=== PATIENT | female | born 1990 | race Caucasian/White ===

== ENCOUNTER 2022-09-11 12:59 | Outpatient (CLI) | payer BC, SELFPAY ==
--- NOTE | 2022-09-11 13:00 | MR_ITS ---
[address] [address] Phone:?[phone] Fax:?[phone] Referring Physician Information: Kofi Yeung [address] [facility] [address] Phone:?[phone] Fax:?[phone] Patient:?Yuly Farooq D.O.B:?1990 Sex:?Female Phone:?[phone] [facility] MRN:?[id number] Exam Date:?09/11/2022 ? EXAM: MRI EXAMINATION OF THE LEFT KNEE CLINICAL INFORMATION: Left knee pain. Status post hyperextension injury. Swelling. Symptoms ongoing for several months. No history of surgery to this area. TECHNICAL INFORMATION: Coronal PD and STIR. Axial PD and T2 fat saturation. Sagittal PD and PD fat saturation images were acquired. INTERPRETATION: Bones: Degenerative or ganglion cystic changes are identified along the posterior lateral aspect of the medial tibial plateau. No evidence for an occult fracture, osseous contusion or stress reaction. No other abnormal bone marrow edema pattern is identified. Ligaments and tendons: The medial collateral ligament is intact, without acute sprain or tear. The iliotibial band, fibular collateral ligament, biceps femoris tendon and popliteus tendon all are intact. The anterior cruciate ligament is intact without acute sprain or tear. The posterior cruciate ligament is intact. Extensor Mechanism: The patellar and quadriceps tendons are intact. The medial and lateral retinacula are intact. Knee Joint: There is a large knee joint effusion. No discrete popliteal cyst. There is no discrete loose body seen within the joint. Medial Compartment: Residua of a meniscocapsular injury involves the posterior horn medial meniscus. There is no evidence for a medial meniscal tear. No displaced flap fragment or parameniscal cyst. There is no focal chondral defect. No other significant changes of chondromalacia. Lateral Compartment: There is no evidence for discrete lateral meniscal tear. No displaced flap fragment or parameniscal cyst. There is an abnormal appearance as seen on series 6 image 22 as well as series 8 images 20 through 23 of a 1.6 cm AP by 0.9 cm mediolateral full-thickness chondral defect involving the posterior weightbearing surface of the lateral femoral condyle. There is a 7 mm segment of grade I to II chondromalacia involving the medial surface of the lateral tibial plateau. Patellofemoral articulation: There are patchy areas of grade II chondromalacia identified across the central portion of the patella. There is a 0.8 x 0.6 cm segment of grade III chondromalacia towards the superior surface of the lateral trochlear groove. There is a 1 x 0.9 cm segment of grade III chondromalacia involving the midline trochlear groove. CONCLUSION: 1. There is a 1.6 x 0.9 cm focal full-thickness chondral defect involving the posterior weightbearing surface of the lateral femoral condyle. 2. There is a large knee joint effusion. No convincing evidence for a loose body within the joint. 3. Residua of a meniscocapsular injury involving the posterior horn medial meniscus. There is no evidence for a meniscal tear. 4. Patellofemoral chondromalacia. This includes a small to moderate size segment of grade III involvement of the midline trochlear groove. Additional small segment of grade III chondromalacia towards the superior surface of the lateral trochlear groove. 5. The cruciate ligaments are intact. No other residua of a ligament injury involving the knee. KES Electronically signed on 09/11/2022 3:11:00 PM by Alfonso Gentile M.D.
== END 2022-09-11 13:00 | disposition home or self-care (01) ==
LOC: MRI 13:06
PROVIDERS: PCP Surgery; Visit Provider Physician Assistant Surgical
DX: M25.562 Pain in left knee (principal); M25.462 Effusion, left knee; M22.42 Chondromalacia patellae, left knee
CPT/HCPCS: 73721

== ENCOUNTER 2022-11-22 08:19 | Outpatient (CLI) | payer BC, SELFPAY ==
--- NOTE | 2022-11-22 08:15 | CRLHL7_ITS ---
For Patients: As a result of the Cures Act, medical imaging exams and procedure reports are released immediately into your electronic medical record. You may view this report before your referring provider. If you have questions, please contact your health care provider. INDICATION: Dating and viability. LMP 09/27/2022. COMPARISON: None. TECHNIQUE: Real-time ribera-scale imaging of the pelvis was performed. FINDINGS: Sonographic imaging demonstrates a single living intrauterine gestation. The embryo has a regular cardiac rate measuring 159 beats per minute. The embryo`s crown-rump length measurement of 7.8 cm corresponds to a gestational age of 13 weeks 6 days with a sonographic due date of 05/24/2023. The placenta is developing posteriorly. No evidence of a perigestational hemorrhage. The ovaries were not visualized. No free fluid in the cul-de-sac. IMPRESSION: 1. Single living intrauterine gestation with crown rump length 7.8 cm which corresponds to a gestational age of 13 weeks 6 days with a sonographic due date of 05/24/2023. 2. The clinical gestational age by LMP is 8 weeks 0 days. Dictated by Jaci Rios MD @ 11/23/2022 1:48:25 AM (Electronically Signed)
== END 2022-11-22 08:20 | disposition home or self-care (01) ==
LOC: US 08:20
PROVIDERS: PCP Surgery; Visit Provider Registered Nurse
DX: Z34.91 Encounter for supervision of normal pregnancy, unspecified, first trimester (principal); Z3A.13 13 weeks gestation of pregnancy
CPT/HCPCS: 0353U; 76801; 76817; 86703; 86803; 86850; 86900; 86901; 87086; 87340; 87491; 87591

== ENCOUNTER 2022-11-22 09:19 | Outpatient (CLI) | payer BC, SELFPAY ==
[2022-11-22 13:13] LABS: Chlamydia DNA Amplified* NOT DETECTED (No Detected); GC DNA Amplified* NOT DETECTED (No Detected)
== END 2022-11-22 09:20 | disposition home or self-care (01) ==
PROVIDERS: PCP Surgery; Visit Provider Registered Nurse
DX: Z34.91 Encounter for supervision of normal pregnancy, unspecified, first trimester (principal); Z3A.13 13 weeks gestation of pregnancy
CPT/HCPCS: 0353U; 86592; 86703; 86762; 86787; 86803; 86850; 86900; 86901; 87086; 87340

== ENCOUNTER 2023-02-28 10:38 | Outpatient (CLI) | payer BC, SELFPAY | END 2023-02-28 10:39 | disposition home or self-care (01) | LOC: NFLDREF 03-02 10:24 | PROVIDERS: PCP Surgery; Referring Provider Surgery; Visit Provider Obstetrics & Gynecology | DX: Z34.92 Encounter for supervision of normal pregnancy, unspecified, second trimester (principal); Z3A.27 27 weeks gestation of pregnancy | CPT/HCPCS: 86592 ==

== ENCOUNTER 2023-03-29 08:46 | Outpatient (CLI) | payer BC, SELFPAY ==
--- NOTE | 2023-03-29 08:45 | CRLHL7_ITS ---
For Patients: As a result of the Cures Act, medical imaging exams and procedure reports are released immediately into your electronic medical record. You may view this report before your referring provider. If you have questions, please contact your health care provider. INDICATION: Third trimester scan, evaluate growth. COMPARISON: 01/10/2023 TECHNIQUE: Real time ribera scale imaging of the fetus was performed. FINDINGS: Sonographic imaging demonstrates a single living intrauterine gestation. Fetus demonstrates a regular cardiac rate of 157 beats per minute. Fetus has a vertex position. The placenta lies posteriorly. Amniotic fluid volume appears normal and there is a single deepest vertical pocket: 5.5 cm. The estimated weight is 1755gm which lies at the 21st %. On the prior OB ultrasound exam dated 01/10/2023 the estimated weight was at the 15th%. BPD 7th percentile. HC 9th percentile. AC 42nd percentile. FL 13th percentile. The HC/AC ratio measures 1.04 range (0.96-1.17). IMPRESSION: Sonographic gestational age 31 weeks 1 day and sonographic due date 05/30/2023. Sonographic age is 6 days behind the clinical age. Estimated weight 21st percentile. Abdominal circumference 42nd percentile. Dictated by Manolo Guardado MD @ 03/29/2023 10:29:31 AM (Electronically Signed)
== END 2023-03-29 08:47 | disposition home or self-care (01) ==
LOC: US 08:47
PROVIDERS: PCP Surgery; Visit Provider Obstetrics & Gynecology
DX: Z34.93 Encounter for supervision of normal pregnancy, unspecified, third trimester (principal); Z3A.31 31 weeks gestation of pregnancy
CPT/HCPCS: 76816

== ENCOUNTER 2023-04-26 09:15 | Outpatient (CLI) | payer BC, SELFPAY | END 2023-04-26 09:16 | disposition home or self-care (01) | LOC: NFLDREF 05-04 09:08 | PROVIDERS: PCP Surgery; Referring Provider Surgery; Visit Provider Obstetrics & Gynecology | DX: Z34.93 Encounter for supervision of normal pregnancy, unspecified, third trimester (principal); Z3A.36 36 weeks gestation of pregnancy | CPT/HCPCS: 87081; 87653 ==

== ENCOUNTER 2023-05-04 10:01 | Inpatient (IN) | payer BC, SELFPAY ==
[2023-05-04] VITALS (27 sets, daily range): BP systolic 95–116; BP diastolic 56–73; PULSE 70–97; RESP 16–18; TEMP 36.3–36.6; O2SAT 94–100; BMI 41.9
[2023-05-04 10:38] LABS: Basophils Absolute Auto 0.02 K/uL (0.00-0.30); Basophils Percent Auto 0.2 % (0.0-3.0); Eosinophils Absolute Auto 0.02 K/uL (0.00-0.50); Eosinophils Percent Auto 0.2 % (0.0-7.0); Hematocrit 35.2 % (33.0-51.0); Hemoglobin* 11.9 gm/dL (12.0-16.0); Immature Granulocytes Abs Auto 0.04 K/uL (0.00-0.30); Immature Granulocytes Pct Auto 0.5 %; Lymphocytes Percent Auto 17.9 % (20-44); Mean Corpuscular HGB Conc 34 gm/dL (32-36); Mean Corpuscular Hemoglobin 30 pg (26-34); Mean Corpuscular Volume 90 fL (80-100); Monocytes Percent Auto 6.4 % (0.0-11.0); Neutrophils Percent Auto 74.8 % (42.0-72.0); Platelet Count* 193 K/uL (140-440); Red Blood Count 3.91 m/uL (4.00-5.20); White Blood Count* 8.58 K/uL (4.50-11.00)
[2023-05-04] MEDS: LACTATED RINGERS 1000 ML 1,000 ML 1200 ML IV (10:40)
[2023-05-04 10:44] LABS: Slide Review Reflex No
[2023-05-04] MEDS: CEFAZOLIN 2 GM in 0.9 % SODIUM CHLORIDE Mini-bag 100 ML IVPB (12:18)
[2023-05-04] MEDS: LACTATED RINGERS 1000 ML 1,000 ML 125 ML IV (12:45)
--- NOTE | 2023-05-04 13:40 | P.LDBA_ITS ---
Subjective History of Present Illness Time Seen by Provider: 11:00 Date Seen: 05/04/23 Narrative: Patient is being admitted to Labor and Delivery for scheduled repeat delivery.. She is a 33 year old at weeks gestation. Her full history and physical was dictated by Dr. Mota on 04/26/2023. Please see this for details. Patient is feeling well today. No regular/painful uterine contractions vaginal bleeding or leaking of fluid. Active movement. Specific Issues/Plans G 6 : Nadeem 1. History of 3 deliveries. Recommendation made by Dr. Kamara at the time of her last delivery that she deliver at early term due to extremely thin lower uterine segment 2. BMI 39.1 Hemoglobin A1c: 5.1 Dietitian referral placed 3. Closely spaced pregnancies. Last delivery 12/12/2021. 4. History of depression and anxiety. * States she is managing well with sertraline 25 mg daily. * Sees a therapist on a weekly basis. * Increased sertraline to 50 mg daily 03/29/23 repeat PHQ and yuri 7 next visit 5. Desires surgical sterilization at the time of repeat section * Federal consent form signed 01/10/2023. 6. EFW 15% at 20 weeks. Repeat US for EFW at 32 weeks: EFW 21% Covid: not vaccinated. Recommended. Reviewed risks associated with covid infection in . TDAP 03/20/23 OB - Problem Based A/P Additional Plan (1) History of 3 sections: Status: Acute (2) Short interval between pregnancies affecting , antepartum: Status: Acute (3) Obesity affecting : Status: Acute (4) Anxiety: Status: Acute (5) : Status: Acute Plan - Consented for repeat delivery with bilateral salpingectomy with Dr. Mota and myself - Plan perioperative Ancef, previously tolerated in her last - Blood type O positive, GBS positive OB Result Labs Labs: Hemoglobin today 11.9 OB Exam Physical Exam Vital signs: Temp Pulse Resp BP Pulse Ox 98 F 77 16 116/70 97 05/04/23 10:49 05/04/23 10:49 05/04/23 10:49 05/04/23 10:49 05/04/23 10:48 Narrative: General: Alert oriented in no acute distress Lungs: Clear to posterior auscultation without wheezes rales or crackles. Heart: Regular rate and rhythm. Abdomen: Gravid. Reactive NST.
--- NOTE | 2023-05-04 13:41 | W.PM.NB ---
Nerve Block Nerve Block Time Seen by Provider: 12:37 Date Seen: 05/04/23 Type of block requested by surgeon for post-operative analgesia: TAP Side: bilateral Time out performed: Yes Verification of patient name: Yes Verification of date of : Yes Site marking: site marked Name of person performing procedure: James Continuous monitoring Was continuous monitoring of O2 sat, B/P, machine tack puller, recorded every 15 minutes?: Yes Procedure Checklist: sterile prep, needles and gloves Ultrasound guided. Images saved: Yes Medications given in 5ml increments after negative aspiration: Marcaine %: 0.25 mL: 30 Needle gauge: 20 and Exparel mL: 10 Patient tolerated procedure well: Yes Additional comments: Needle noted adjacent to nerve Block Charges Block Charge (with Pro Fee): TAP Bilateral Use of Ultrasound Machine for Block: Yes- US Guidance/pain block
--- NOTE | 2023-05-04 13:41 | W.ANESCHARGE ---
Anesthesia Charges Start Date/Time Anesthesia Start Date: 05/04/23 Anesthesia Start Time: 12:15 Stop Date/Time Anesthesia Stop Date: 05/04/23 Anesthesia Stop Time: 13:48
--- NOTE | 2023-05-04 13:44 | P.OBPRC_ITS ---
Procedure Time Seen by Provider: 13:44 Date of procedure: 05/04/23 Pre-op diagnosis: Thirty-seven weeks gestation, prior delivery x3 Procedure Done: Global Will [facility] bill your pro fee for this procedure?: Yes Blood Loss Measurement Type: QBL (1214mL) Bakri Used: No IV fluids (mL): 1,700 Power Plant Inspector: Mariela Mota MD Anesthesia type: Spinal Findings: Mild adhesive disease secondary to prior deliveries Normal uterus, bilateral fallopian tubes and ovaries 1 cm left paratubal cyst Procedure Name: Repeat delivery with bilateral salpingectomy Procedure Description: PROCEDURE IN DETAIL: Patient was taken to the operating room with IV running. She received cefazolin in preoperative prophylaxis. Epidural anesthesia had previously been administered. Jay catheter was inserted. She was prepped and draped in the usual sterile fashion. Anesthesia was tested and found to be adequate. A low-transverse skin incision was made along her Pfannenstiel scar with a scal pel and carried through to the underlying layer of fascia with the scalpel. The subcutaneous fat was dissected off the underlying fascia with gentle blunt dissection. The fascia was nicked in the midline with a scalpel, and this incision was extended laterally with scissors. The rectus muscles were in the midline. Peritoneum was identified and entered bluntly. Mild adhesions were noted between the anterior abdominal wall and omentum, carefully reduced. Deng O retractor was inserted and tightened down, providing excellent visualization of the lower uterine segment. The bladder reflection was noted, and bladder flap performed with Metzenbaum scissors and gentle blunt dissection to below the level of the planned hysterotomy. Low-transverse uterine incision was made with a scalpel. Incision was widened bluntly. The infant's head was grasped through the hysterotomy and delivered with the help of fundal pressure. The remainder of the body delivered without incident. Cord was clamped and cut after 30 seconds. was handed off to attending nurses. The placenta was delivered with gentle traction on the cord. The uterus was cleaned of all clots and debris with the dry lap pad. The hysterotomy was reapproximated with 0 Vicryl in a running, locked fashion. Second layer of the same suture was used in imbricating fashion to obtain hemostasis. The adnexa were examined and noted to be normal in appearance. The left fallopian tube was elevated with two Babcocks and starting at the fibriated end the mesosalpinx was sequentially ligated and transected with hand-held Ligasure. A left paratubal cyst was noted just distal to the fibriated end of the tube, elevated with Russians and ligated/transected with Ligasure. Excellent hemoastsis noted. Salpingectomy was completed on the right as described above. Specimens sent for pathology. The cul-de-sac and gutters were cleansed with dampened laparotomy sponge, removing any further clots and debris. The Deng O retractor was removed. The hysterotomy was reexamined and found to be hemostatic. The rectus muscles were examined and found to be hemostatic. The fascia was reapproximated with 0 PDS in a running fashion. Subcutaneous fat was irrigated and Bovie used on oozing vessels. The subcutaneous fat was reapproximated with 2-0 vicryl suture in an interrupted fashion. The skin was closed with a subcuticular stitch of 3-0 Vicryl. Surgical glue was applied above this. Patient tolerated procedure well was taken to recovery area in stable condition. Complications: None. Condition: stable
--- NOTE | 2023-05-04 13:54 | W.ANESCHARGE ---
Anesthesia Charges Start Date/Time Anesthesia Start Date: 05/04/23 Anesthesia Start Time: 12:15 Stop Date/Time Anesthesia Stop Date: 05/04/23 Anesthesia Stop Time: 13:48
--- NOTE | 2023-05-04 14:05 | SUR.PHASEI ---
patient meets pacu discharge criteria per therapeutic riding instructor
[2023-05-04] MEDS: ACETAMINOPHEN 500 MG TABLET 1000 MG PO ×2 (18:17→23:49)
[2023-05-04] MEDS: KETOROLAC 30 MG/ML inj IVP (19:49)
[2023-05-04] MEDS: diphenhydrAMINE 50 MG/ML inj 12.5 MG IVP ×2 (20:24→21:18)
[2023-05-04] MEDS: SERTRALINE 50 MG TABLET PO (21:11)
[2023-05-04] MEDS: ENOXAPARIN 40 MG/0.4 ML INJ SUBCUT (23:36)
[2023-05-05] VITALS (12 sets, daily range): BP systolic 97–116; BP diastolic 58–72; PULSE 68–81; RESP 16–18; TEMP 36.4–36.7; O2SAT 96–98
[2023-05-05] MEDS: KETOROLAC 30 MG/ML inj IVP ×4 (01:45→20:00)
[2023-05-05] MEDS: OXYCODONE 5 MG TABLET PO (05:17)
[2023-05-05] MEDS: ACETAMINOPHEN 500 MG TABLET 1000 MG PO ×3 (05:17→18:59)
[2023-05-05] MEDS: SIMETHICONE 80 MG TAB.CHEW PO ×2 (05:49→20:00)
[2023-05-05] MEDS: DOCUSATE SODIUM 100 MG CAPSULE PO (07:42)
[2023-05-05 07:51] LABS: Hemoglobin* 10.2 gm/dL (12.0-16.0)
--- NOTE | 2023-05-05 13:42 | PM.OBPNVD1 ---
OB - PN:Subj Subjective Date Seen: 05/05/23 Patient comments OB post-: no complaints, pain well controlled, tolerating diet and flatus present [place] status: and doing well [place] feeding status: exclusively Narrative: Day 1:? Vaginal Delivery at 37 and 1/7 weeks post repeat section at 37 weeks due to a history of a thin lower uterine segment.? ?? Complications:? none? The patient feels well.? The pain is well controlled with current medications.? She has no new complaints.? Urinary output is adequate and she is voiding without difficulty.? Has a good appetite, is tolerating a general diet, is passing flatus, and has had a bowel movement.? Has scant amount of rubra lochia.? She is ambulating well.?She is and feels that it is going well and denies concerns. She is uncertain if she would like to discharge tomorrow or Sunday. ? OB - PN: Obj Exam Physical Exam: Vital signs: Temp Pulse Resp BP Pulse Ox O2 Del Method 97.7 F 68 16 97/58 L 96 Room Air 05/05/23 10:10 05/05/23 10:10 05/05/23 11:55 05/05/23 10:10 05/05/23 10:10 05/05/23 10:10 Narrative: GENERAL APPEARANCE:? normal affect, alert, no distress? MOOD:? appropriate? CHEST:? clear to auscultation and percussion? HEART:? regular rate and rhythm? ABDOMEN:? soft, non-tender the uterine fundus is U/2 and is appropriate for the stage of recovery.?Insicion covered by a dressing that is clean dry and intact. EXTREMITIES:? normal and no edema? Urinary Catheter Management: Urethral: Cath placed during this visit: yes, but has since been removed by the nurse Reason for continuing: decision to DC catheter Insertion date: 05/04/23 Insertion time: 12:30 Removal date: 05/04/23 Removal time: 19:00 OB - PN: Obj Data Labs Labs: Laboratory Results - last 24 hr 05/04/23 05/05/23 10:30 07:40 Hgb 10.2 L Blood Type O Positive OB - PN: A/P Delivery Assessment and Plan (1) History of 3 sections: Status: Acute (2) Short interval between pregnancies affecting , antepartum: Status: Acute (3) Obesity affecting : Status: Acute (4) Anxiety: Status: Acute (5) : Status: Acute (6) Lactating mother: Status: Acute (7) care following delivery: Status: Acute Plan day: 1 Plan: routine care Comments: 32 year old on day 1.? 1. cares.? 2. Anticipate discharge tomorrow or Sunday per patient preference.?
[2023-05-05] MEDS: SERTRALINE 50 MG TABLET PO (20:01)
[2023-05-05] MEDS: ENOXAPARIN 40 MG/0.4 ML INJ SUBCUT (23:29)
[2023-05-06 03:32] VITALS: BP 105/69; PULSE 70; RESP 16; TEMP 36.4; O2SAT 99
[2023-05-06] MEDS: IBUPROFEN 600 MG TABLET PO (03:35)
--- NOTE | 2023-05-06 08:46 | P.DS_ITS ---
DS: Providers Provider Date Seen: 05/06/23 Date of admission: 05/04/23 10:01 Primary care physician: Cesar Ramon MD Admitting Clinician: Mariela Mota MD Attending Physician on discharge: Marcia Walker APRN, CNM DS: Diagnosis Discharge Diagnosis (1) care and examination immediately after delivery: Status: Acute (2) care following delivery: Status: Acute (3) Delivery by section of full-term infant: Status: Acute (4) Anxiety: Status: Acute Exam Narrative: Exam Narrative: GENERAL APPEARANCE:? normal affect, alert, no distress MOOD:? appropriate CHEST:? clear to auscultation HEART:? regular rate and rhythm ABDOMEN:? soft, non-tender the uterine fundus is at Umbilicus, Midline and is appropriate for the stage of recovery. EXTREMITIES:? normal and no edema INCISION: Healing well, no surrounding erythema, abnormal induration or discharge Const: Vital Signs, click to edit/add: Vital Signs - 24 hr 05/05/23 08:55 05/05/23 09:55 05/05/23 10:10 Temperature 97.7 F Pulse Rate [Pulse Oximeter] 68 Respiratory Rate 16 16 16 Blood Pressure [Le ft Arm] 97/58 L Pulse Oximetry 96 Oxygen Delivery Me thod Room Air 05/05/23 10:55 05/05/23 11:55 05/05/23 19:58 Temperature 98.1 F Pulse Rate [Pulse Oximeter] 81 Respiratory Rate 16 16 18 Blood Pressure [Le ft Arm] 110/70 Pulse Oximetry 98 Oxygen Delivery Me thod Room Air 05/06/23 03:32 Temperature 97.5 F L Pulse Rate [Pulse Oximeter] 70 Respiratory Rate 16 Blood Pressure [Le ft Arm] 105/69 Pulse Oximetry 99 Oxygen Delivery Me thod Room Air OB - DS: Summary Hospital Course Hospital Course: Yuly is a 33 year old G 6 P 3124 at 37 1/7 weeks gestation that was admitted to the Center on 05/04/23 for repeat section with bilateral salpingectomy. She had an uncomplicated delivery. She delivered a viable female . The patient feels well. ?The pain is well controlled with current medications. ?She has no new complaints. ?She is breast feeding and reports things are going well. the patient has done well.? Vitals have been stable.? She has remained afebrile.? Has a good appetite, is tolerating a general diet. ?She is voiding without difficulty.? She is passing gas and has had a bowel movement.? She is ambulating and denies any dizziness.? Has small amount of rubra lochia. She had a bilateral salpingectomy for sterilization. Problems: None plan: Discharge home with baby. Follow up in 2 weeks and 6 weeks. , may see if needed Hgb 10.2. Peripartum Data delivery method: Repeat Section Laceration description: None Procedures: Procedures Operation Date: 05/04/23 12:15 Actual Procedure Side Surgeon p Repeat with bilateral salpingectomy Bilateral Mariela B MD [place] complications: none [place] Gender: Female Infant Discharge Plan: Home Time Spent with Patient Time attestation: Total time spent providing and/or coordinating discharge services: Time spent: Less than 30 minutes Discharge Plan Discharge Disposition: Home, Self-Care Date of Admission: 05/04/23 10:01 Attending Provider on Discharge: Marcia Walker Primary Care Provider: Cesar Ramon Condition: Stable Anticipated Discharge Date/Time: 05/06/23 12:00 Discharge Medications: New acetaminophen 500 mg Tablet 1,000 mg PO Q6H PRN (Reason: Pain) Qty: 0 0RF docusate sodium 100 mg Capsule 100 mg PO DAILY Qty: 90 0RF ibuprofen 600 mg Tablet 600 mg PO Q6H PRN (Reason: Pain) Qty: 60 0RF oxycodone 5 mg Tablet 5 - 10 mg PO Q4H PRN (Reason: Pain) Qty: 20 0RF Continued prenat.vits,levi,scz-tpny-agoko Tablet 1 tab PO QDAY sertraline 50 mg tablet 50 mg PO QDAY Qty: 90 0RF Discharge Orders: Discharge Order (Routine); Ordered 05/06/23 Ordered By: Marcia Walker Patient Education: OB Over the Counter Medication Information, OB /Breast Feeding Additional Instructions: Discharge instructions were reviewed with the patient including signs and symptoms of infection and home going medications Lifting Restrictions: 20 pounds for 6 weeks No not submerge incision under water X 2 weeks? Nothing vaginally for 6 weeks: no tampons or intercourse Do not drive while taking narcotic pain medication(s) Off Work or School for 8 weeks 2-week visit: incision check, discuss infant feeding concerns, review control options and screen for anxiety/depression. 6-week visit for an annual exam. consultation services are available to all mothers and babies for the first year after delivery.? To make an appointment, please call [phone]. Activity Level: Activity as Tolerated Discharge Diet: Regular Follow Up Appointments: [facility] [Provider Group] Forms: [employer] Info Instructions
[2023-05-06] MEDS: ACETAMINOPHEN 500 MG TABLET 1000 MG PO (08:49)
[2023-05-06] MEDS: DOCUSATE SODIUM 100 MG CAPSULE PO (08:49)
[2023-05-06 09:22] VITALS: BP 127/76; PULSE 78; RESP 16; TEMP 36.4; O2SAT 95
[2023-05-06] MEDS: OXYCODONE 5 MG TABLET PO (10:20)
== END 2023-05-06 12:35 | disposition home or self-care (01) | DRG 540 ==
PROVIDERS: Admitting Provider Obstetrics & Gynecology; PCP Surgery; Visit Provider Obstetrics & Gynecology
PROC: 10D00Z1 Extraction of Products of Conception, Low, Open Approach (ICD-10-PCS; CPT 59514; principal; 2023-05-04 12:15)
DX: O34.211 Maternal care for low transverse scar from previous cesarean delivery (principal); N85.8 Other specified noninflammatory disorders of uterus; O99.344 Other mental disorders complicating childbirth; F41.9 Anxiety disorder, unspecified; O99.824 Streptococcus B carrier state complicating childbirth; Z30.2 Encounter for sterilization; O99.214 Obesity complicating childbirth; E66.9 Obesity, unspecified; Z3A.37 37 weeks gestation of pregnancy; Z37.0 Single live birth; G89.18 Other acute postprocedural pain
CPT/HCPCS: 01961; 36415; 64488; 76942; 85018; 85025; 86850; 86900; 86901; 88302; A9270; C9290; J0665; J0690; J1100; J1200; J1650; J1885; J2274; J2371; J2405; J2590; J7120